=== PATIENT | female | born 1980 | race Caucasian/White ===

== ENCOUNTER 2017-09-05 14:40 | Inpatient (IN) | payer OTHER ==
[~2017-09-05] VITALS: Ht 157.5 cm; Wt 83.5 kg
--- NOTE | 2017-09-05 04:02 | NUR ---
PATIENT RESTING: Patient resting quietly. No acute distress noted. Vital signs within normal range. Addendum: 09/06/17 at 0408 by Lizz Burnett RN WRONG ENTRY, WRONG PATIENT
--- NOTE | 2017-09-05 14:43 | NUR ---
Pt placed in bed 6 by [facility]
[2017-09-05 14:46] VITALS: BP_SYST 191
--- NOTE | 2017-09-05 14:46 | NUR ---
will assume care of patient.
--- NOTE | 2017-09-05 14:50 | NUR ---
Patient brought in by [facility]. Patient states that she was going to see her PMD Dr. Lopez when she felt shortness of breath and started to have a panic attack. Patient states she felt nauseous and light headed. Patient states that she has had increased hypertension of SBP >200 for the last week. Patient is on Dialysis twice a week on Friday and Saturdays. Patient states she also has a frontal headache. Pain 7/10. No other complaints/injuries per patient or as noted. Will continue to monitor.
--- NOTE | 2017-09-05 14:55 | NUR ---
ER at bedside examining patient.
--- NOTE | 2017-09-05 14:56 | NUR ---
ER at bedside examining patient.
[2017-09-05] MEDS ORDERED: LORazepam 2 MG/ML VIAL IM ONE (15:00)
[2017-09-05] MEDS ORDERED: LORazepam 2 MG/ML VIAL (FOR ER USE) IM ONE (15:00)
--- NOTE | 2017-09-05 15:10 | NUR ---
Medicated per MD orders. Will cont to monitor
[2017-09-05] MEDS ORDERED: ASPIRIN 81 MG TAB.CHEW PO ONE (16:45)
[2017-09-05] MEDS ORDERED: HYDR-1115 PO (16:57)
[2017-09-05] MEDS ORDERED: LIP40 PO (16:57)
[2017-09-05] MEDS ORDERED: CALC667T5 PO (16:57)
[2017-09-05] MEDS ORDERED: DOCU-144 PO (16:57)
[2017-09-05] MEDS ORDERED: TOPXL100 PO (16:57)
[2017-09-05] MEDS ORDERED: NEPH PO (16:57)
[2017-09-05] MEDS ORDERED: ASA81 PO (16:57)
[2017-09-05] MEDS ORDERED: FURO-149 PO (16:57)
[2017-09-05] MEDS ORDERED: HYG25 PO (16:57)
--- NOTE | 2017-09-05 16:57 | NUR ---
Medication reconciliation completed with information provided by patient. Any prior medication reconciliation on file was reviewed and corrected.
[2017-09-05 17:12] LABS: BASOPHILS # (AUTO) 0.1 K/uL (0.0-0.2); BASOPHILS % (AUTO) 0.9 % (0.0-2.0); EOSINOPHILS # (AUTO) 0.5 K/uL (0.0-0.4); EOSINOPHILS % (AUTO) 4.4 % (0.0-4.0); HEMATOCRIT 29.5 % (36-48); HEMOGLOBIN 10.1 g/dL (12.0-16.0); LYMPHOCYTES # (AUTO) 1.8 K/uL (1.0-5.5); LYMPHOCYTES % (AUTO) 15.5 % (20.5-51.5); MEAN CORPUSCULAR HEMOGLOBIN 30 pg (27-31); MEAN CORPUSCULAR HGB CONC 34 % (32-36); MEAN CORPUSCULAR VOLUME 89 fL (79.0-98.0); MONOCYTES # (AUTO) 0.5 K/uL (0.0-1.0); MONOCYTES % (AUTO) 4.2 % (1.7-9.3); NEUTROPHILS # (AUTO) 8.7 K/uL (1.8-7.7); PLATELET COUNT (AUTO) 311 K/uL (130-430); RED BLOOD CELL COUNT(AUTO) 3.31 MIL/uL (4.2-6.2); WHITE BLOOD COUNT (AUTO) 11.6 K/uL (4.8-10.8)
[2017-09-05 17:19] LABS: CALCIUM 7.6 mg/dL (8.4-11.0); POTASSIUM 5.3 mmol/L (3.5-5.1)
[2017-09-05 17:23] LABS: ALBUMIN 2.9 g/dL (3.4-4.8); TOTAL BILIRUBIN 0.3 mg/dL (0.0-1.0)
[2017-09-05 17:27] LABS: CREATININE 12.6 mg/dL (0.55-1.30)
--- NOTE | 2017-09-05 17:29 | NUR ---
Patient medicated per MD orders. Will continue to monitor.
--- NOTE | 2017-09-05 17:42 | NUR ---
Telemetry strip printed, interpreted as SINUS RHYTHM at 66 bpm, and placed on the chart.
--- NOTE | 2017-09-05 18:13 | NUR ---
Patient will be admitted to care of Dr. Guerrero. Admitted to Telemetry unit. Will go to room 102 B. Belongings list completed. Summary report printed. Report will be given at bedside.
--- NOTE | 2017-09-05 18:23 | NUR ---
ADMISSION NOTE Received patient from ER via gurney. Patient admitted with diagnosis of hypetension . Patient is awake, alert, oriented X 4. Patient oriented to hospital room, call light, toileting, pain management and safety-teach back done. Patient informed that will be her nurse and that their room number is 102.b. Personal belongings checked and Belongings List documented. Call light within reach.
[2017-09-05 18:27] VITALS: BP_SYST 195
[2017-09-05] MEDS ORDERED: MUPIROCIN 2% TOPICAL OINTMENT 22 GM NS PRN (19:30)
[2017-09-05] MEDS ORDERED: DOCUSATE SODIUM 100 MG CAPSULE PO PRN (19:30)
[2017-09-05] MEDS ORDERED: MORPHINE 4 MG/ML INJ. SYRINGE IVP PRN (19:30)
[2017-09-05] MEDS ORDERED: ZOLPIDEM TARTRATE 5 MG TABLET PO PRN (19:30)
[2017-09-05] MEDS ORDERED: MAGNESIUM SULFATE 50 ML IV PRN (19:30)
[2017-09-05] MEDS ORDERED: POTASSIUM CHLORIDE 20 MEQ TAB.PRT.SR PO PRN (19:30)
[2017-09-05] MEDS ORDERED: DEXTROSE 50% JECT 50 ML DISP.SYRIN IVP PRN (19:30)
[2017-09-05] MEDS ORDERED: cloNIDine HCL 0.2 MG TABLET PO PRN (19:30)
--- NOTE | 2017-09-05 19:40 | NUR ---
ROUNDS PATIENT IN BED, AWAKE, ALERT, ORIENTED, NOT IN DISTRESS, VITALS STABLE. DENIES ANY PAIN AND DISCOMFORT AT THIS TIME. ADMISSION ASSESSMENT DONE AND DOCUMENTED. SEE FLOWSHEET. ORIENTED TO HER ROOM, PHONE AND CALL LIGHT. PLAN OF CARE DISCUSSED AND PATIENT VERBALIZED UNDERSTANDING. NEEDS ATTENDED TO. SAFETY AND FALL PRECAUTION MEASURES IN PLACED. BED IN LOW AND LOCKED POSITION. BED ALARM ON. CALL LIGHT PLACED WITHIN REACH.
--- NOTE | 2017-09-05 20:12 | NUR ---
CONSULTATION CALLED REASON FOR CONSULTATION: ESRD WAS CONSULT CALLED? Y PERSON WHO WAS NOTIFIED: YEIMY CONSULTING PHYSICIAN: MIGUEL LEI (ACCOUNTING MACHINE OPERATOR JALEEL EMANUEL) SED SPECIAL EDUCATION TEACHER SPECIALTY: NEPHROLOGY SED SPECIAL EDUCATION TEACHER PHONE NUMBER: [phone] ORDERING PHYSICIAN: KATHRINE MALDONADO
[2017-09-05] MEDS: ACETAMINOPHEN 325 MG TABLET PO PRN (20:14)
[2017-09-05] MEDS: DOCUSATE SODIUM 100 MG CAPSULE PO SCH (20:14)
[2017-09-05] MEDS: hydrALAZINE HCL 25 MG TABLET PO SCH (20:15)
[2017-09-05] MEDS: NACL 0.9% 1,000 ML IV SCH (20:16)
[2017-09-05] MEDS: HEPARIN SODIUM,PORCINE 5000 UNITS/ML VIAL SUBCUT SCH (20:23)
--- NOTE | 2017-09-05 21:10 | NUR ---
MEDICATION DUE MEDICATIONS GIVEN ORDERED, TOLERATED WELL. WILL CONTINUE TO MONITOR.
[2017-09-05] MEDS: MORPHINE 4 MG/ML INJ. SYRINGE IVP PRN (22:48)
[2017-09-06 00:03] VITALS: BP_SYST 188
--- NOTE | 2017-09-06 00:10 | NUR ---
PATIENT RESTING: Patient resting quietly. No acute distress noted. Vital signs within normal range.
[2017-09-06 00:21] VITALS: BP_SYST 152
--- NOTE | 2017-09-06 04:10 | NUR ---
PATIENT RESTING: Patient resting quietly. No acute distress noted. Vital signs within normal range.
--- NOTE | 2017-09-06 06:44 | NUR ---
CLOSING NOTES PATIENT AWAKE, VITALS STABLE, NO PAIN AND DISCOMFORT AT THIS TIME. ALL NEEDS ATTENDED TO. SAFETY AND FALL PRECAUTION MEASURES MAINTAINED. CALL LIGHT PLACED WITHIN REACH.
--- NOTE | 2017-09-06 07:30 | NUR ---
Initial Note Received report from the night nurse Lizz. Pt AOX4. No sign of distress noted at this time. Bed is at lowest position with bed alarm on. Call light within reach. Pt will have hemodialysis today.
[2017-09-06 07:41] LABS: BASOPHILS # (AUTO) 0.1 K/uL (0.0-0.2); BASOPHILS % (AUTO) 0.8 % (0.0-2.0); EOSINOPHILS # (AUTO) 0.5 K/uL (0.0-0.4); EOSINOPHILS % (AUTO) 6.1 % (0.0-4.0); HEMATOCRIT 27.4 % (36-48); HEMOGLOBIN 8.8 g/dL (12.0-16.0); LYMPHOCYTES # (AUTO) 1.8 K/uL (1.0-5.5); LYMPHOCYTES % (AUTO) 20.2 % (20.5-51.5); MEAN CORPUSCULAR HEMOGLOBIN 29 pg (27-31); MEAN CORPUSCULAR HGB CONC 32 % (32-36); MEAN CORPUSCULAR VOLUME 90 fL (79.0-98.0); MONOCYTES # (AUTO) 0.4 K/uL (0.0-1.0); MONOCYTES % (AUTO) 4.8 % (1.7-9.3); NEUTROPHILS % (AUTO) 68.1 % (40.0-70.0); PLATELET COUNT (AUTO) 285 K/uL (130-430); RED BLOOD CELL COUNT(AUTO) 3.05 MIL/uL (4.2-6.2); RED CELL DISTRIBUTION WIDTH 13.9 % (9.0-15.0); WHITE BLOOD COUNT (AUTO) 8.8 K/uL (4.8-10.8)
[2017-09-06 07:45] VITALS: BP_SYST 183
[2017-09-06 07:53] LABS: CALCIUM 7.2 mg/dL (8.4-11.0); POTASSIUM 5.1 mmol/L (3.5-5.1)
[2017-09-06 07:56] LABS: CREATININE 13.22 mg/dL (0.55-1.30)
[2017-09-06] MEDS: ASPIRIN 81 MG TAB.CHEW PO SCH (08:34)
[2017-09-06] MEDS: DOCUSATE SODIUM 100 MG CAPSULE PO SCH ×2 (08:34→20:07)
[2017-09-06] MEDS: hydrALAZINE HCL 25 MG TABLET PO SCH ×4 (08:35→20:07)
[2017-09-06] MEDS: CALCIUM ACETATE 667 MG CAP PO SCH ×3 (08:35→17:24)
[2017-09-06] MEDS: METOPROLOL SUCCINATE 50 MG TAB.SR.24H (TOPROL XL) PO SCH (08:35)
[2017-09-06] MEDS: NEPHROVITE, (FOLIC ACID/VITAMIN B COMP W-C 1 TAB) PO SCH (08:35)
[2017-09-06] MEDS: FUROSEMIDE 40 MG TABLET PO SCH (08:36)
[2017-09-06] MEDS: HEPARIN SODIUM,PORCINE 5000 UNITS/ML VIAL SUBCUT SCH ×2 (08:37→20:12)
[2017-09-06] MEDS: ONDANSETRON HCL 4 MG/2 ML VIAL IVP PRN ×2 (08:38→17:26)
[2017-09-06] MEDS: CHLORTHALIDONE 25 MG TABLET (HYGROTON) PO SCH (08:41)
[2017-09-06] MEDS ORDERED: SIMETHICONE 80 MG TAB.CHEW PO ONE (09:15)
[2017-09-06] MEDS: PIPERACILLIN/TAZO 2.25G/DEX-IS 50 ML IV SCH ×3 (09:15→17:25)
[2017-09-06] MEDS ORDERED: IPRATROPIUM/ALBUTEROL SULFATE 3 ML AMPUL.NEB INH PRN (09:15)
[2017-09-06] MEDS ORDERED: METOCLOPRAMIDE HCL 10 MG TABLET PO PRN (09:15)
--- NOTE | 2017-09-06 09:40 | NUR ---
Pt on Dialysis
[2017-09-06] MEDS ORDERED: HEPARIN SODIUM,PORCINE 5000 UNITS/ML VIAL SUBCUT ONE ×2 (11:00→11:15)
[2017-09-06 11:23] VITALS: BP_SYST 189
--- NOTE | 2017-09-06 11:30 | NUR ---
RN Rounds Pt awake and is having dialysis. No signs of distress noted at this time. Bed is at lowest position with bed alarm on. Call light within reach.
[2017-09-06] MEDS: INSULIN ASPART 100 UNITS/ML, 10 ML VIAL (NovoLOG) SUBCUT PRN ×2 (11:41→17:16)
[2017-09-06] MEDS: MORPHINE 4 MG/ML INJ. SYRINGE IVP PRN (11:42)
[2017-09-06] MEDS ORDERED: LOSARTAN POTASSIUM 50 MG TABLET (COZAAR) PO ONE (12:00)
[2017-09-06 15:23] VITALS: BP_SYST 169
--- NOTE | 2017-09-06 15:30 | NUR ---
RN Rounds Pt awake and does not complain of any pain or discomfort at this time. No sign of distress noted. Bed is at lowest position with bed alarm on. Call light within reach.
[2017-09-06] MEDS ORDERED: EPOETIN ALFA 4,000 UNITS/ML VIAL SUBCUT SCH (17:00)
[2017-09-06] MEDS: ATORVASTATIN 20 MG TABLET PO SCH (17:24)
--- NOTE | 2017-09-06 18:19 | NUR ---
Closing Note Pt AOX4. No sign of distress noted at this time. Bed is at lowest position with bed alarm on. Call light within reach. Pt had hemodialysis today, 4 L out. Abnormal labs before dialysis: Na 130, BUN 63, Creatinine 13.22. Dr. Guerrero aware.
[2017-09-06 19:37] VITALS: BP_SYST 158
--- NOTE | 2017-09-06 19:50 | NUR ---
ROUNDS PATIENT RESTING COMFORTABLY IN BED, NOT IN DISTRESS, VITALS STABLE. DENIES ANY PAIN AND DISCOMFORT AT THIS TIME. ASSESSMENT DONE AND DOCUMENTED. SEE FLOWSHEET. NEEDS ATTENDED TO. SAFETY AND FALL PRECAUTION MEASURES IN PLACED. BED IN LOW AND LOCKED POSITION. BED ALARM ON. CALL LIGHT PLACED WITHIN REACH.
[2017-09-06] MEDS: ACETAMINOPHEN 325 MG TABLET PO PRN (20:07)
[2017-09-06] MEDS: NACL 0.9% 1,000 ML IV SCH (20:14)
[2017-09-06] MEDS ORDERED: NIFEDIPINE 30 MG TAB.ER.24 PO SCH (21:00)
--- NOTE | 2017-09-06 21:10 | NUR ---
ACCU CHECK ACCU CHECK DONE WITH BLOOD SUGAR OF 128, NO INSULIN COVERAGE PER SLIDING SCALE. WILL CONTINUE TO MONITOR.
[2017-09-06 23:14] LABS: BARBITURATE, URINE NEGATIVE (NEG <=200); BENZODIAZEPINE, URINE NEGATIVE (NEG <=150); CANNABINOID, URINE NEGATIVE (NEG <=50); COCAINE, URINE NEGATIVE (NEG <=150); METHAMPHETAMINES SCREEN,URINE NEGATIVE (NEG <=500); OPIATE, URINE POSITIVE (NEG <=100); PHENCYCLIDINE SCREEN,URINE NEGATIVE (NEG <=25); UR TRICYCLIC ANTIDEPRESSANTS NEGATIVE (NEG <=300); URINE AMPHETAMINE NEGATIVE (NEG <=500); URINE METHADONE NEGATIVE (NEG <=200); URINE OXYCODONE SCREEN NEGATIVE (NEG <=100); URINE PROPOXYPHENE SCREEN NEGATIVE (NEG <=300)
--- NOTE | 2017-09-07 00:15 | NUR ---
PATIENT RESTING: Patient resting quietly. No acute distress noted. Vital signs within normal range.
[2017-09-07] MEDS: PIPERACILLIN/TAZO 2.25G/DEX-IS 50 ML IV SCH ×5 (00:25→23:11)
[2017-09-07 00:42] VITALS: BP_SYST 166
--- NOTE | 2017-09-07 02:16 | NUR ---
ROUNDS PATIENT ASLEEP, VITALS STABLE, NO SIGNS OF ANY PAIN AND DISCOMFORT NOTED. WILL CONTINUE TO MONITOR.
[2017-09-07] MEDS: ONDANSETRON HCL 4 MG/2 ML VIAL IVP PRN (03:07)
--- NOTE | 2017-09-07 04:10 | NUR ---
PATIENT RESTING: Patient resting quietly. No acute distress noted. Vital signs within normal range.
[2017-09-07] MEDS: INSULIN ASPART 100 UNITS/ML, 10 ML VIAL (NovoLOG) SUBCUT PRN ×3 (06:21→21:31)
--- NOTE | 2017-09-07 06:33 | NUR ---
CLOSING NOTES PATIENT STABLE, ACCU CHECK DONE WITH BLOOD SUGAR OF 165. NOVOLOG 2 UNITS GIVEN SUBCU PER SLIDING SCALE. ALL NEEDS ATTENDED TO. SAFETY AND FALL MEASURES MAINTAINED. CALL LIGHT PLACED WITHIN REACH.
[2017-09-07 07:09] LABS: BASOPHILS # (AUTO) 0.1 K/uL (0.0-0.2); EOSINOPHILS # (AUTO) 0.4 K/uL (0.0-0.4); EOSINOPHILS % (AUTO) 5.1 % (0.0-4.0); HEMOGLOBIN 9.1 g/dL (12.0-16.0); LYMPHOCYTES # (AUTO) 1.6 K/uL (1.0-5.5); LYMPHOCYTES % (AUTO) 20.4 % (20.5-51.5); MEAN CORPUSCULAR HEMOGLOBIN 30 pg (27-31); MEAN CORPUSCULAR HGB CONC 34 % (32-36); MEAN CORPUSCULAR VOLUME 89 fL (79.0-98.0); MONOCYTES # (AUTO) 0.4 K/uL (0.0-1.0); MONOCYTES % (AUTO) 5.7 % (1.7-9.3); NEUTROPHILS # (AUTO) 5.1 K/uL (1.8-7.7); NEUTROPHILS % (AUTO) 67.8 % (40.0-70.0); PLATELET COUNT (AUTO) 249 K/uL (130-430); RED BLOOD CELL COUNT(AUTO) 3.03 MIL/uL (4.2-6.2); RED CELL DISTRIBUTION WIDTH 13.8 % (9.0-15.0); WHITE BLOOD COUNT (AUTO) 7.6 K/uL (4.8-10.8)
--- NOTE | 2017-09-07 07:30 | NUR ---
Initial notes: Patient on bed awake, alert and oriented. Legally Blind. Stable. I.V. access patent. Safety measures in placed. Call light within reach. Report received from CJ Weiss.
[2017-09-07 07:32] LABS: CALCIUM 7.1 mg/dL (8.4-11.0); POTASSIUM 4.3 mmol/L (3.5-5.1)
[2017-09-07 07:38] LABS: CREATININE 8.69 mg/dL (0.55-1.30)
[2017-09-07 08:13] VITALS: BP_SYST 154
[2017-09-07] MEDS: CALCIUM ACETATE 667 MG CAP PO SCH ×3 (08:31→17:54)
[2017-09-07] MEDS: LOSARTAN POTASSIUM 50 MG TABLET (COZAAR) PO SCH (08:32)
[2017-09-07] MEDS: hydrALAZINE HCL 25 MG TABLET PO SCH ×3 (08:33→20:07)
[2017-09-07] MEDS: NEPHROVITE, (FOLIC ACID/VITAMIN B COMP W-C 1 TAB) PO SCH (08:33)
[2017-09-07] MEDS: FUROSEMIDE 40 MG TABLET PO SCH (08:33)
[2017-09-07] MEDS: METOPROLOL SUCCINATE 50 MG TAB.SR.24H (TOPROL XL) PO SCH (08:34)
[2017-09-07] MEDS: DOCUSATE SODIUM 100 MG CAPSULE PO SCH ×2 (08:34→20:08)
[2017-09-07] MEDS: ASPIRIN 81 MG TAB.CHEW PO SCH (08:34)
[2017-09-07] MEDS: HEPARIN SODIUM,PORCINE 5000 UNITS/ML VIAL SUBCUT SCH ×2 (08:35→20:09)
[2017-09-07] MEDS: CHLORTHALIDONE 25 MG TABLET (HYGROTON) PO SCH (08:42)
--- NOTE | 2017-09-07 08:46 | NUR ---
rounds: patient ambulatory with assist. sitting on bed. medication given and compliant.
[2017-09-07] MEDS ORDERED: NIFEDIPINE 60 MG TABLET.SA (PROCARDIA XL 60 MG) PO SCH (09:00)
[2017-09-07 11:23] VITALS: BP_SYST 158
--- NOTE | 2017-09-07 11:38 | NUR ---
rounds: patient on bed talking to family at bedside. no distress noted.
--- NOTE | 2017-09-07 14:19 | NUR ---
rounds: patient resting. no distress noted.
[2017-09-07 15:22] VITALS: BP_SYST 155
[2017-09-07] MEDS ORDERED: HEPARIN SODIUM,PORCINE 5000 UNITS/ML VIAL MC ONE (15:30)
--- NOTE | 2017-09-07 15:33 | NUR ---
Dialysis: Patient starting dialysis at bedside. Dialysis nurse preparing the machine.
--- NOTE | 2017-09-07 16:37 | NUR ---
rounds: patient on bed on going dialysis.
[2017-09-07] MEDS: ATORVASTATIN 20 MG TABLET PO SCH (17:54)
--- NOTE | 2017-09-07 17:58 | NUR ---
rounds: patient finishing dinner. on going dialysis. no distress noted.
--- NOTE | 2017-09-07 18:34 | NUR ---
Closing notes: Patient on bed resting, dialysis done. Dialysis output 2,300ml. Stable. Needs attended. Safety measures in placed. Call light within reach. Report will be given to shift stacker.
[2017-09-07] MEDS: ACETAMINOPHEN 325 MG TABLET PO PRN (19:36)
--- NOTE | 2017-09-07 19:50 | NUR ---
ROUNDS PATIENT RESTING COMFORTABLY IN BED, NOT IN DISTRESS, VITALS STABLE. DENIES ANY PAIN AND DISCOMFORT AT THIS TIME. ASSESSMENT DONE AND DOCUMENTED. SEE FLOWSHEET. NEEDS ATTENDED TO. SAFETY AND FALL PRECAUTION MEASURES IN PLACED. BED IN LOW AND LOCKED POSITION. CALL LIGHT PLACED WITHIN REACH.
[2017-09-07 20:00] VITALS: BP_SYST 162
--- NOTE | 2017-09-07 21:15 | NUR ---
ACCU CHECK ACCU CHECK DONE, BLOOD SUGAR 284 WITH 6 UNITS NOVOLOG GIVEN SUBCU PER SLIDING SCALE. WILL CONTINUE TO MONITOR PATIENT.
[2017-09-07] MEDS: NACL 0.9% 1,000 ML IV SCH (23:10)
[2017-09-08] VITALS (7 sets, daily range): BP systolic 148–181
--- NOTE | 2017-09-08 00:10 | NUR ---
PATIENT RESTING: Patient resting quietly. No acute distress noted. Vital signs within normal range.
--- NOTE | 2017-09-08 02:11 | NUR ---
ROUNDS PATIENT ASLEEP, VITALS STABLE, WILL CONTINUE TO MONITOR.
--- NOTE | 2017-09-08 04:07 | NUR ---
PATIENT RESTING: Patient resting quietly. No acute distress noted. Vital signs within normal range.
[2017-09-08] MEDS: PIPERACILLIN/TAZO 2.25G/DEX-IS 50 ML IV SCH ×4 (05:26→23:24)
--- NOTE | 2017-09-08 06:57 | NUR ---
CLOSING NOTES PATIENT AWAKE, VITALS STABLE, NO PAIN AT THIS TIME. ALL NEEDS ATTENDED TO. SAFETY AND FALL PRECAUTION MEASURES MAINTAINED. CALL LIGHT PLACED WITHIN REACH.
--- NOTE | 2017-09-08 07:20 | NUR ---
Initial notes: Patient sitting on the bed. Stable. I.V. access patent. Discussed plan of care. Safety measures in placed. Call light within reach. Received report from CJ Weiss at bedside.
[2017-09-08 07:52] LABS: BASOPHILS # (AUTO) 0.1 K/uL (0.0-0.2); BASOPHILS % (AUTO) 1.1 % (0.0-2.0); EOSINOPHILS # (AUTO) 0.3 K/uL (0.0-0.4); EOSINOPHILS % (AUTO) 5.3 % (0.0-4.0); HEMATOCRIT 26.5 % (36-48); HEMOGLOBIN 8.8 g/dL (12.0-16.0); LYMPHOCYTES # (AUTO) 1.6 K/uL (1.0-5.5); LYMPHOCYTES % (AUTO) 25.3 % (20.5-51.5); MEAN CORPUSCULAR HEMOGLOBIN 30 pg (27-31); MEAN CORPUSCULAR HGB CONC 33 % (32-36); MEAN CORPUSCULAR VOLUME 90 fL (79.0-98.0); MONOCYTES # (AUTO) 0.5 K/uL (0.0-1.0); MONOCYTES % (AUTO) 7.7 % (1.7-9.3); NEUTROPHILS # (AUTO) 3.9 K/uL (1.8-7.7); NEUTROPHILS % (AUTO) 60.6 % (40.0-70.0); PLATELET COUNT (AUTO) 238 K/uL (130-430); RED BLOOD CELL COUNT(AUTO) 2.95 MIL/uL (4.2-6.2); WHITE BLOOD COUNT (AUTO) 6.4 K/uL (4.8-10.8)
[2017-09-08] MEDS: FUROSEMIDE 40 MG TABLET PO SCH (09:39)
[2017-09-08] MEDS: ASPIRIN 81 MG TAB.CHEW PO SCH (09:39)
[2017-09-08] MEDS: CHLORTHALIDONE 25 MG TABLET (HYGROTON) PO SCH (09:39)
[2017-09-08] MEDS: DOCUSATE SODIUM 100 MG CAPSULE PO SCH ×2 (09:40→21:04)
[2017-09-08] MEDS: NEPHROVITE, (FOLIC ACID/VITAMIN B COMP W-C 1 TAB) PO SCH (09:40)
[2017-09-08] MEDS: LOSARTAN POTASSIUM 50 MG TABLET (COZAAR) PO SCH (09:40)
[2017-09-08] MEDS: CALCIUM ACETATE 667 MG CAP PO SCH ×3 (09:40→18:24)
[2017-09-08] MEDS: hydrALAZINE HCL 25 MG TABLET PO SCH ×3 (09:41→21:06)
[2017-09-08] MEDS: METOPROLOL SUCCINATE 50 MG TAB.SR.24H (TOPROL XL) PO SCH (09:42)
[2017-09-08] MEDS: HEPARIN SODIUM,PORCINE 5000 UNITS/ML VIAL SUBCUT SCH ×2 (09:43→21:07)
--- NOTE | 2017-09-08 09:57 | NUR ---
rounds: patient on bed. no distress noted.
[2017-09-08] MEDS ORDERED: LORA-259 PO (10:19)
[2017-09-08] MEDS ORDERED: LOSA50TA20 PO (10:20)
[2017-09-08] MEDS ORDERED: LEVO250T20 PO (10:20)
--- NOTE | 2017-09-08 10:32 | NUR ---
BP: Checked BP 171/92 NM 72. Clonidine given p.o. continue to monitor. Addendum: 09/08/17 at 1159 by Calista Mcneil RN patient resting. checked BP, still high. Request Ativan to calmed her down. She feels "she's getting anxious".
[2017-09-08] MEDS: LORazepam 2 MG/ML VIAL IVP PRN ×2 (11:33→15:27)
--- NOTE | 2017-09-08 12:00 | NUR ---
rounds: patient sleeping. no distress noted.
[2017-09-08] MEDS ORDERED: LABETALOL HCL 100 MG TABLET PO ONE (14:15)
[2017-09-08] MEDS: INSULIN ASPART 100 UNITS/ML, 10 ML VIAL (NovoLOG) SUBCUT PRN ×2 (14:20→16:59)
[2017-09-08] MEDS: ONDANSETRON HCL 4 MG/2 ML VIAL IVP PRN ×2 (14:25→20:03)
--- NOTE | 2017-09-08 14:30 | NUR ---
increased BP: patient woke up. Rechecked BP 181/88 OH 67. Continue to monitor. Addendum: 09/08/17 at 1447 by Calista Mcneil RN Patient vomited. She verbalized "she feels weak and having anxiety". Addendum: 09/08/17 at 1535 by Calista Mcneil RN Informed Dr. Guerrero holding the discharge due to patient increased BP this morning. Will him back at 4pm if patient BP does not decrease.
[2017-09-08 15:29] LABS: AMYLASE 56 U/L (0-100); LIPASE 109 U/L (73-393)
--- NOTE | 2017-09-08 15:36 | NUR ---
Dietitian Recommendations *Recommend [facility] Renal Standard diet [id number] diet. Please see Nutritional Assessment for details. VITOR, RD
--- NOTE | 2017-09-08 16:36 | NUR ---
Conversation with Dr. Guerrero: Informed Dr. Guerrero patient BP 169/85 [place] 78. Patient does not feel well and weak. He said to hold the discharge, and he will discharge the patient tomorrow.
--- NOTE | 2017-09-08 16:40 | NUR ---
Incident: Assisted patient to the toilet. Patient longterm pulled her pants and about to sit, I came out to provide privacy. Went back to hand her the string of the call light. Saw the patient hit her head to the wall, did not fall and able to catch her. She said, "she was pulling her pants off and she was out balance and able to grab the i.v. pole, drag her to the wall." Applied ice pack. Continue to monitor. Dr. Guerrero informed.
--- NOTE | 2017-09-08 17:09 | NUR ---
rounds: patient resting. denies pain. no distress noted.
[2017-09-08] MEDS ORDERED: MAG-AL HYDROX/SIMETH 30 ML UDC PO PRN (18:15)
[2017-09-08] MEDS: ATORVASTATIN 20 MG TABLET PO SCH (18:24)
--- NOTE | 2017-09-08 18:34 | NUR ---
closing notes: Patient on bed resting. Stable. Needs attended. Safety measures in placed. Call light within reach. Report will be given to home health administrator.
--- NOTE | 2017-09-08 19:45 | NUR ---
ROUNDS PATIENT RESTING COMFORTABLY IN BED, NOT IN DISTRESS, VITALS STABLE. DENIES ANY PAIN AND DISCOMFORT AT THIS TIME. ASSESSMENT DONE AN DOCUMENTED. SEE FLOWSHEET. NEEDS ATTENDED TO. SAFETY AND FALL PRECAUTION MEASURES IN PLACED. BED IN LOW AND LOCKED POSITION. BED ALARM ON. CALL LIGHT PLACED WITHIN REACH.
[2017-09-08] MEDS: LABETALOL HCL 100 MG TABLET PO SCH (21:05)
--- NOTE | 2017-09-08 21:13 | NUR ---
MEDICATION DUE MEDICATIONS GIVEN ORDERED, TOLERATED WELL. WILL CONTINUE TO MONITOR.
--- NOTE | 2017-09-09 00:14 | NUR ---
PATIENT RESTING: Patient resting quietly. No acute distress noted. Vital signs within normal range.
[2017-09-09 01:01] VITALS: BP_SYST 127
[2017-09-09] MEDS: NACL 0.9% 1,000 ML IV SCH (02:18)
[2017-09-09] MEDS: ONDANSETRON HCL 4 MG/2 ML VIAL IVP PRN ×2 (02:18→08:01)
--- NOTE | 2017-09-09 04:10 | NUR ---
PATIENT RESTING: Patient resting quietly. No acute distress noted. Vital signs within normal range.
[2017-09-09] MEDS: PIPERACILLIN/TAZO 2.25G/DEX-IS 50 ML IV SCH ×2 (05:20→11:59)
[2017-09-09] MEDS: INSULIN ASPART 100 UNITS/ML, 10 ML VIAL (NovoLOG) SUBCUT PRN ×2 (05:59→12:09)
--- NOTE | 2017-09-09 06:40 | NUR ---
CLOSING NOTES PATIENT AWAKE, VITALS STABLE, DENIES ANY PAIN AND DISCOMFORT AT THIS TIME. ACCU CHECK DONE WITH BLOOD SUGAR OF 155. REGULAR INSULIN 2 UNITS GIVEN SUBCU PER SLIDING SCALE. ALL NEEDS ATTENDED TO. CALL LIGHT PLACED WITHIN REACH.
[2017-09-09 07:22] LABS: BASOPHILS # (AUTO) 0.1 K/uL (0.0-0.2); EOSINOPHILS # (AUTO) 0.2 K/uL (0.0-0.4); EOSINOPHILS % (AUTO) 2.3 % (0.0-4.0); HEMATOCRIT 25.7 % (36-48); HEMOGLOBIN 8.6 g/dL (12.0-16.0); LYMPHOCYTES # (AUTO) 1.3 K/uL (1.0-5.5); LYMPHOCYTES % (AUTO) 13.5 % (20.5-51.5); MEAN CORPUSCULAR HEMOGLOBIN 30 pg (27-31); MEAN CORPUSCULAR HGB CONC 33 % (32-36); MEAN CORPUSCULAR VOLUME 90 fL (79.0-98.0); MONOCYTES # (AUTO) 0.4 K/uL (0.0-1.0); MONOCYTES % (AUTO) 4.5 % (1.7-9.3); NEUTROPHILS # (AUTO) 7.8 K/uL (1.8-7.7); NEUTROPHILS % (AUTO) 78.7 % (40.0-70.0); PLATELET COUNT (AUTO) 216 K/uL (130-430); RED BLOOD CELL COUNT(AUTO) 2.87 MIL/uL (4.2-6.2); RED CELL DISTRIBUTION WIDTH 13.8 % (9.0-15.0); WHITE BLOOD COUNT (AUTO) 9.8 K/uL (4.8-10.8)
[2017-09-09 07:36] LABS: CALCIUM 7.3 mg/dL (8.4-11.0); POTASSIUM 3.8 mmol/L (3.5-5.1)
[2017-09-09 07:55] VITALS: BP_SYST 177
--- NOTE | 2017-09-09 08:00 | NUR ---
Opening notes Received pt in bed, pt is aaox4, denies pain, no sob, no resp distress. right subclavian evan noted, dressing is dry and intact. right hand iv access intact and patent with iv fluid infusing well. safety precaution kept in place. call light in reach. bed locked and in low position. encouraged to call for any assistance and for pain medications. will cont to monitor
[2017-09-09] MEDS: hydrALAZINE HCL 25 MG TABLET PO SCH (08:14)
[2017-09-09] MEDS: LABETALOL HCL 100 MG TABLET PO SCH (08:15)
[2017-09-09] MEDS: LOSARTAN POTASSIUM 50 MG TABLET (COZAAR) PO SCH (08:16)
[2017-09-09] MEDS: FUROSEMIDE 40 MG TABLET PO SCH (08:16)
[2017-09-09 08:32] LABS: CREATININE 8.43 mg/dL (0.55-1.30)
[2017-09-09] MEDS: CALCIUM ACETATE 667 MG CAP PO SCH ×2 (08:35→12:01)
[2017-09-09] MEDS: ASPIRIN 81 MG TAB.CHEW PO SCH (08:36)
[2017-09-09] MEDS: DOCUSATE SODIUM 100 MG CAPSULE PO SCH (08:36)
[2017-09-09] MEDS: NEPHROVITE, (FOLIC ACID/VITAMIN B COMP W-C 1 TAB) PO SCH (08:36)
[2017-09-09] MEDS: HEPARIN SODIUM,PORCINE 5000 UNITS/ML VIAL SUBCUT SCH (08:42)
[2017-09-09] MEDS: CHLORTHALIDONE 25 MG TABLET (HYGROTON) PO SCH (08:43)
--- NOTE | 2017-09-09 10:00 | NUR ---
Rn Rounds pt in bed, family at bedside. denies pain, no n/v, will cont to monitor bp. pt appears stable. safety precaution on. will cont to monitor.
--- NOTE | 2017-09-09 10:02 | NUR ---
PAGED DR NEAL FOR CRITICAL CREATININE LEVEL OF 8.43, DR BARRETO (COVERING) CALLED BACK AND MADE AWARE, SAID HE WILL PLACE ORDER FOR HD TODAY.
[2017-09-09 10:22] VITALS: BP_SYST 177
[2017-09-09 10:58] LABS: POTASSIUM 3.8 mmol/L (3.5-5.1)
[2017-09-09 11:05] LABS: CALCIUM 7.4 mg/dL (8.4-11.0)
[2017-09-09 11:06] LABS: CREATININE 6.82 mg/dL (0.55-1.30)
[2017-09-09 11:24] VITALS: BP_SYST 157
[2017-09-09] MEDS ORDERED: cloNIDine HCL 0.2 MG TABLET PO SCH (11:45)
--- NOTE | 2017-09-09 12:20 | NUR ---
Rn Rounds Pt in bed, eating lunch. no c./o pain. no sob, no distress. safety precaution on, bed alarm on. will cont to monitor.
[2017-09-09 13:02] VITALS: BP_SYST 157
--- NOTE | 2017-09-09 13:50 | NUR ---
Dr. Hooker was here and MD is aware that pt will go home today and the HD will be done on and the pt has already spoken to the dialysis center.
--- NOTE | 2017-09-09 14:15 | NUR ---
D/C Patient Patient given medication reconciliation form and D/C instructions. Exit Care provided. Patient verbalized understanding. MD discussed with patient the results and treatment provided. Ambulatory with steady gait for discharge to home. Patient in stable condition, ID band removed. IV catheter removed, intact and dressing applied, no active bleeding. Rx for Losartan, Ativan and Levaquin given. Patient educated on pain management. All belongings sent with patient.
--- NOTE | 2017-09-09 15:31 | NUR ---
Dc Planning: dc home FU with PCP and nephro in one week. Per CJ Benavides: "Dr. Hooker was here and MD is aware that pt will go home today and the HD will be done on and the pt has already spoken to the dialysis center."
--- NOTE | 2017-09-12 14:17 | NUR ---
Discharge Follow Up Phone Calls: Renal Case Manager called and left a voice mail for pt ([phone]) on 09/11/17. POST COMMANDER called and spoke with pt today. Pt states that she is feeling better; pt's prescriptions have been filled; there are no questions regarding discharge or medication instructions; pt checks her blood sugar as directed by PCP; pt attended dialysis on 09/11/17; pt has a follow up appointment scheduled with PCP, Dr. Ashlie Nicole, on 09/18/17. Pt agreeable to POST COMMANDER assisting with scheduling Nephrology appointment. POST COMMANDER called pt's Healthcare Economics Consultant, Dr. Lopez's, office ([phone]) and spoke with Sergio; POST COMMANDER scheduled pt's follow up appointment for 09/26/17 at 2:15pm. POST COMMANDER called pt back and provided update regarding pt's appointment. Pt did not express any other needs or concerns and denied the need for additional follow up at this time. No further follow up phone calls required at this time.
== END 2017-09-09 14:10 | disposition home or self-care (01) | DRG 137 ==
LOC: SED 14:40 → STU 18:02
PROVIDERS: ADMIT General Practice; ATTEND General Practice
PROC: 5A1D70Z Performance of Urinary Filtration, Intermittent, Less than 6 Hours Per Day (ICD-10-PCS; principal; 2017-09-06)
PROC: 5A1D70Z Performance of Urinary Filtration, Intermittent, Less than 6 Hours Per Day (ICD-10-PCS; 2017-09-07)
DX: J69.0 Pneumonitis due to inhalation of food and vomit (principal); N17.0 Acute kidney failure with tubular necrosis; E44.0 Moderate protein-calorie malnutrition; K31.84 Gastroparesis; N25.81 Secondary hyperparathyroidism of renal origin; E87.1 Hypo-osmolality and hyponatremia; E11.43 Type 2 diabetes mellitus with diabetic autonomic (poly)neuropathy; E11.21 Type 2 diabetes mellitus with diabetic nephropathy; E11.65 Type 2 diabetes mellitus with hyperglycemia; I12.0 Hypertensive chronic kidney disease with stage 5 chronic kidney disease or end stage renal disease; E11.22 Type 2 diabetes mellitus with diabetic chronic kidney disease; Z99.2 Dependence on renal dialysis; N18.6 End stage renal disease; H54.8 Legal blindness, as defined in USA; F41.9 Anxiety disorder, unspecified; E78.5 Hyperlipidemia, unspecified; E87.5 Hyperkalemia; D63.8 Anemia in other chronic diseases classified elsewhere; F41.0 Panic disorder [episodic paroxysmal anxiety]; E11.319 Type 2 diabetes mellitus with unspecified diabetic retinopathy without macular edema; Z79.899 Other long term (current) drug therapy; Z79.82 Long term (current) use of aspirin; Z98.891 History of uterine scar from previous surgery; Z83.3 Family history of diabetes mellitus; Z68.32 Body mass index [BMI] 32.0-32.9, adult
CPT/HCPCS: 36415; 71045; 80048; 80053; 80307; 82150-TC; 82550-TC; 82962; 83690-TC; 83735-TC; 83880; 84484; 85025; 85730-TC; 87081; 90935; 90937; 93005; 96372; 99285; C1751; J0885; J1644; J1815; J2060; J2270; J2405; J2543; J7030; J8597